=== PATIENT | male | born 1990 | race Caucasian/White ===

== ENCOUNTER 2016-11-23 09:30 | Emergency (ER) | payer BC, OTHER ==
[~2016-11-23] VITALS: Ht 182.9 cm; Wt 90.7 kg
[~2016-11-23 09:30] MED LIST: DIPH25TA26 PO; LORA10CA PO; OMEP20CA5 PO
[2016-11-23] MEDS ORDERED: ADENOSINE 6 MG/2 ML VIAL IV ONE (09:39)
[2016-11-23] MEDS: ADENOSINE 6 MG/2 ML VIAL IV ONE (09:43)
[2016-11-23] MEDS: IV NORMAL SALINE 1,000ML 1,000 ML IV ONE (09:53)
[2016-11-23 10:06] LABS: HEMOGLOBIN ISTAT 14.3 gm/dL; POTASSIUM ISTAT 3.5 mmol/L (3.5-5.0)
--- NOTE | 2016-11-23 10:23 | ED.ADGEN ---
Past History Past Medical History: GERD, Other Past Surgical History: No Surgical History Smoking: Less than 1pk/day Alcohol Use: Occasionally Drug Use: None Adult General HPI HPI Patient is a 26-year-old male presents emergency department complaining of a rapid heart rate. He has a history of SVT. He rates it felt similar. He reports he did not get much sleep last night and then today had a duodenal any testing at work and after the fifth obstacle he became symptomatic. He has been trying to use his vagal maneuvers without any success. Review of Systems Review of Systems Constitutional: Denies fever or chills [] Eyes: Denies change in visual acuity, redness, or eye pain [] HENT: Denies nasal congestion or sore throat [] Respiratory: Denies cough or shortness of breath [] Cardiovascular: No additional information not addressed in HPI [] GI: Denies abdominal pain, nausea, vomiting, bloody stools or diarrhea [] : Denies dysuria or hematuria [] Musculoskeletal: Denies back pain or joint pain [] Integument: Denies rash or skin lesions [] Neurologic: Denies headache, focal weakness or sensory changes [] Endocrine: Denies polyuria or polydipsia [] Current Medications Current Medications Current Medications Medications (Trade) Dose Ordered Sig/Tisha Start Time Stop Time Status Last Admin Dose Admin Adenosine (Adenocard) 12 mg 1X ONCE 11/23/16 10:00 11/23/16 10:02 DC 11/23/16 09:43 12 MG Adenosine 6 mg 6 mg STK-MED ONCE 11/23/16 09:39 11/23/16 09:40 DC Sodium Chloride (Iv Sodium Chloride 0.9% 1,000ml) 1,000 ml @ 1,000 mls/hr 1X ONCE 11/23/16 10:00 11/23/16 10:59 DC 11/23/16 09:53 1,000 MLS/HR Allergies Allergies Allergies Coded Allergies Type Severity Reaction Last Updated Verified codeine Allergy Intermediate 11/23/16 Yes morphine Allergy Intermediate unknown 11/23/16 Yes Physical Exam Physical Exam Constitutional: Well developed, well nourished, no acute distress, non-toxic appearance. [] HENT: Normocephalic, atraumatic, bilateral external ears normal, oropharynx moist, no oral exudates, nose normal. [] Eyes: PERRLA, EOMI, conjunctiva normal, no discharge. [] Neck: Normal range of motion, no tenderness, supple, no stridor. [] Cardiovascular:tachycardia [] Lungs & Thorax: Bilateral breath sounds clear to auscultation [] Abdomen: Bowel sounds normal, soft, no tenderness, no masses, no pulsatile masses. [] Skin: Warm, dry, no erythema, no rash. [] Extremities: No tenderness, no cyanosis, no clubbing, ROM intact, no edema. [] Neurologic: Alert and oriented X 3, normal motor function, normal sensory function, no focal deficits noted. [] Psychologic: Affect normal, judgement normal, mood normal. [] Current Patient Data Vital Signs Vital Signs Date Time Temp Pulse Resp B/P Pulse Ox O2 Delivery O2 Flow Rate FiO2 11/23/16 10:38 88 18 133/65 99 Room Air 11/23/16 09:37 98.9 Lab Results Laboratory Tests Test 11/23/16 09:50 11/23/16 10:03 POC Troponin I 0.04ng/ml (<0.08) POC Hemoglobin 14.3gm/dL POC Hematocrit 42% POC Sodium 141mmol/L (135-145) POC Potassium 3.5mmol/L (3.5-5.0) POC Chloride 101mmol/L (98-110) POC Total CO2 22mmol/L (23-32) L Anion Gap 22mmol/L (6-14) H POC Blood Urea Nitrogen 12mg/dL (8-26) POC Creatinine 1.1mg/dL (0.5-1.4) Glucose Level 133mg/dL (60-99) H POC Ionized Calcium (Arian) 1.13mmol/L (1.13-1.32) EKG EKG EKG interpreted by me, supraventricular tachycardia, 197 beats for minute, Repeat EKG interpreted by me, normal sinus rhythm, 96 bpm, no ST segment elevation, normal axis. [] Radiology/Procedures Radiology/Procedures [] Course & Med Decision Making Course & Med Decision Making Pertinent Labs and Imaging studies reviewed. (See chart for details) We were unsuccessful at converting him to a normal sinus rhythm using vagal maneuvers. However, we were able to get him to convert quite nicely with 1 single dose of 12 mg of adenosine. This was workup is unremarkable and he was able to maintain a normal sinus rhythm. 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 Man and return emergency Department sooner if he develops any new or worsening symptoms. [] Final Impression Final Impression SVT [] Problems: Dragon Disclaimer Dragon Disclaimer This electronic medical record was generated, in whole or in part, using a voice recognition dictation system. Cardioversion Indication: [INDICATION:] Consent: [CONSENT:] Pre-Medication: [SEDATION MEDS:] Procedure: The patient was placed in the supine position and the chest area was exposed. The cardioversion [PADS/PADDLES:] were applied in the standard manner and configuration. Attempt #1: The defibrillator was set on the [DEFIB MODE:] mode and charged to [ ENERGY LEVEL:] joules. A charge was then delivered which resulted in [POST RHYTHM:]. Attempt #2: [RESULTS:] Attempt #3: [RESULTS:] The patient tolerated the procedure [TOLERATED:]. Complications: [COMPLICATION:]. Critical Care Time Critical care time was 20 minutes exclusive of procedures. GAEL KUMARI MD Nov 23, 2016 10:23
[2016-11-23 10:38] VITALS: BP 133/65
--- NOTE | 2016-11-23 12:55 | EKG ---
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
--- NOTE | 2016-11-24 12:18 | EKG ---
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
== END 2016-11-23 11:15 | disposition home or self-care (01) ==
LOC: ER 09:30
DX: I47.1 Supraventricular tachycardia (principal); K21.9 Gastro-esophageal reflux disease without esophagitis; F17.200 Nicotine dependence, unspecified, uncomplicated; Z88.5 Allergy status to narcotic agent; Z88.6 Allergy status to analgesic agent
CPT/HCPCS: 80047; 84484; 92960; 93005; 96361; 96374; 99285; J0153; J7030

== ENCOUNTER 2021-01-15 13:22 | Emergency (ER) | payer BC, OTHER ==
[~2021-01-15] VITALS: Ht 182.9 cm; Wt 111.0 kg
[2021-01-15 13:32] VITALS: BP 141/80
[2021-01-15] MEDS ORDERED: ACETAMINOPHEN 500 MG TABLET PO ONE (14:00)
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
== END 2021-01-15 15:17 | disposition home or self-care (01) ==
LOC: ER 13:22
DX: S00.83XA Contusion of other part of head, initial encounter (principal); S40.012A Contusion of left shoulder, initial encounter; M25.512 Pain in left shoulder; F17.200 Nicotine dependence, unspecified, uncomplicated; Z88.5 Allergy status to narcotic agent; Y00.XXXA Assault by blunt object, initial encounter; Y93.89 Activity, other specified; Y92.89 Other specified places as the place of occurrence of the external cause; Y99.8 Other external cause status
CPT/HCPCS: 70450; 70486; 73030; 99285